=== PATIENT | female | born 1945 | race Caucasian/White ===

== ENCOUNTER 2018-09-12 19:44 | Observation (INO) | payer MEDICARE, BC, OTHER ==
[~2018-09-12] VITALS: Ht 160 cm; Wt 72.6 kg
[~2018-09-12 19:44] MED LIST: ATROVENT15 ML INH; CLONAZEPAM0.5 MG PO; LASIX20 MG PO; LEXAPRO10 MG PO; METOPROLOL SUCC50 MG PO; NORCO 10-325 T1 EACH PO; PROCHLORPERAZIN10 MG PO; TRAZODONE HCL50 MG PO; ULTRAM50 MG PO
[2018-09-12] MEDS ORDERED: ASPIRIN 81 MG CHEW TAB PO ONE (20:00)
[2018-09-12] MEDS ORDERED: HYDROMORPHONE 1MG/1ML INJ IV STA ×2 (20:03→21:57)
[2018-09-12] MEDS ORDERED: ONDANSETRON HCL INJ 2 MG/ML VIAL IV STA (20:03)
[2018-09-12] MEDS ORDERED: ONDANSETRON HCL INJ 2 MG/ML VIAL ONE (20:05)
[2018-09-12] MEDS ORDERED: HYDROMORPHONE 2MG/ML 2 MG/ML ML ONE (20:05)
[2018-09-12] MEDS ORDERED: HYDROMORPHONE 2MG/ML 2 MG/ML ML IV SCH (20:15)
[2018-09-12] MEDS ORDERED: ACETAMINOPHEN 1000 MG/100 ML IV STA (20:38)
[2018-09-12] MEDS ORDERED: ACETAMINOPHEN 1000 MG/100 ML 100 ML IV ONE (20:45)
[2018-09-12] MEDS ORDERED: HYDROMORPHONE 2MG/ML 2 MG/ML ML IV STA (22:13)
[2018-09-12] MEDS ORDERED: ONDANSETRON HCL INJ 2 MG/ML VIAL IV PRN (22:15)
[2018-09-12] MEDS ORDERED: HYDROMORPHONE 2MG/ML 2 MG/ML ML IV PRN (22:15)
--- NOTE | 2018-11-05 16:12 | Discharge Summary ---
SHORT STAY AND SUMMARY DATE OF : September 13, 2018 ADMITTING DIAGNOSES 1. Altered mental status, patient found unresponsive. 2. Hypertension. 3. Dementia. 4. Chronic obstructive pulmonary disease. CAUSE OF : Sudden cardiac arrest. BRIEF HISTORY: Ms. Leung is a 72-year-old lady who was brought in from the longterm due to being unresponsive at the longterm. She has a history of hypertension, COPD, and dementia. The patient was admitted to the floor for observation, on some antibiotics. The family had made her DNR and asked for comfort care only. The patient deteriorated on the floor and and was pronounced by the ER physician before being seen by the admitting service. MINH MORAES MD Job#: [id number] LPA
== END 2018-09-13 02:35 | disposition expired ==
LOC: ER 19:44 → ERHOLD 22:15 → IMCU 22:33
PROVIDERS: ADMIT Internal Medicine; ATTEND Internal Medicine
DX: R41.82 Altered mental status, unspecified (principal); Z51.5 Encounter for palliative care; I95.9 Hypotension, unspecified; R50.9 Fever, unspecified; Z66 Do not resuscitate; I10 Essential (primary) hypertension; J44.9 Chronic obstructive pulmonary disease, unspecified; F41.9 Anxiety disorder, unspecified; F32.9 Major depressive disorder, single episode, unspecified; K21.9 Gastro-esophageal reflux disease without esophagitis; K58.9 Irritable bowel syndrome, unspecified; K52.9 Noninfective gastroenteritis and colitis, unspecified; Z74.01 Bed confinement status
CPT/HCPCS: 99284; G0378 ×2; J1170; J2405